=== PATIENT | female | born 1965 | race African-American/Black ===

== ENCOUNTER → 2016-10-29 | Outpatient (CLI) | payer OTHER ==
[~2016-10-29] MED LIST: LORTAB 5/500 TA1 TA1 PO
--- NOTE | ~2016-10-29 | MR84 ---
[facility]. [facility] A Service of [facility] & [facility] RADIOLOGY TEXT RESULTS PATIENT: MYRA ESQUEDA LOCATION: [facility] : 65 UNIT #: [id number] AGE: [address]: Jacquie Strong MD SEX: F ORDER DR: [id number] [place] [id number] O MR#: [id number] Acc #: [id number] NAME: MYRA ESQUEDA : 1965 SEX: F STUDY DATE/TIME: 10/29/2016 15:33 UNIT: [facility] ROOM: STUDY DESCRIPTION: MR Hip Wo Contrast Rt Attending Physician: Jacquie Strong M.D. Referring Physician: Jacquie Strong M.D. Ordering Physician: Jacquie Strong M.D. Primary Care Physician: Jacquie Strong M.D. MRI CENTER REPORT This report is preliminary unless electronic signature is present. EXAM MRI pelvis and hips without contrast, 10/29/2016. COMPARISON Right hip radiographs 09/24/2016. [facility]. Right hip radiographs 12/01/2012. HISTORY Order states acute pain of right hip. History sheet states no known injury. Increasing right hip pain since 09/21/2016. Hurts to walk, sit, stand for periods of time. Hysterectomy. Diabetic.. FINDINGS There is moderately advanced arthrosis of the right hip with prominent joint space narrowing, moderate osteophyte formation, fairly extensive high-grade chondromalacia, subarticular cystic change and marrow edema (predominating on the acetabular side), and articular irregularity. There is no effusion, avascular necrosis, fracture, or sizeable loose body. There is, however, moderate periarticular inflammation especially superolaterally with paralabral or periarticular cyst formation along the superolateral acetabular rim. This could be secondary to underlying labral pathology (likely degenerative). The left hip is unremarkable. The gluteal tendons are intact. The remainder of the bony pelvis, sacrum, and SI joints are within normal limits. There is moderate lower lumbar degenerative disc disease and facet arthrosis not optimally characterized on this exam. There is sigmoid diverticulosis. Hysterectomy is noted. No internal pelvic mass, STS. [facility] A Service of [facility] & [facility] RADIOLOGY TEXT RESULTS PATIENT: MYRA ESQUEDA LOCATION: [facility] : 65 UNIT #: [id number] AGE: [address]: Jacquie Strong MD SEX: F ORDER DR: lymphadenopathy, or hernia is noted. IMPRESSION 1. Moderately advanced right hip arthrosis with superolateral paraarticular inflammation and cystic change, likely related to degenerative labral pathology. 2. There is no evidence of avascular necrosis, fracture, or left hip arthrosis. 3. On further review, there may be two small loose bodies in the posteroinferior aspect of the right hip joint space. 4. Lower lumbar degenerative disc disease and facet arthrosis. 5. Sigmoid diverticulosis. Dictated by... Brigitte Estrada M.D. THIS IS AN ELECTRONICALLY VERIFIED REPORT Brigitte Estrada M.D. at 10/30/2016 10:52 AM JUAN/migdalia TD: 10/30/2016 09:12 JOB #: [id number] MRI CENTER REPORT Page 1 of 1
== END | disposition home or self-care (01) ==
LOC: SMRI 15:15
DX: M25.551 Pain in right hip (principal); M16.11 Unilateral primary osteoarthritis, right hip; M51.36 Other intervertebral disc degeneration, lumbar region; K57.30 Diverticulosis of large intestine without perforation or abscess without bleeding
CPT/HCPCS: 73721

== ENCOUNTER → 2017-02-25 | Outpatient (CLI) | payer OTHER ==
--- NOTE | ~2017-02-25 | US6 ---
[facility] A Service of [facility] RADIOLOGY TEXT RESULTS PATIENT: MYRA ESQUEDA LOCATION: [facility] : 65 UNIT #: [id number] AGE: [address]: Jacquie Strong MD SEX: F ORDER DR: [id number] [place] [id number] O MR#: [id number] Acc #: [id number] NAME: MYRA ESQUEDA. : 1965 SEX: F STUDY DATE/TIME: 02/25/2017 10:16 UNIT: [facility] ROOM: STUDY DESCRIPTION: US Abdominal Limited Attending Physician: Jacquie Strong M.D. Referring Physician: Jacquie Strong M.D. Ordering Physician: Jacquie Strong M.D. Primary Care Physician: Jacquie Strong M.D. MEDICAL IMAGING REPORT This report is preliminary unless electronic signature is present. EXAM Right upper quadrant abdominal ultrasound INDICATIONS Right upper quadrant abdominal pain for the past 8 days. PROCEDURE Myles-scale and Doppler imaging right upper quadrant of the abdomen. COMPARISON 01/19/2014 FINDINGS Visualized portions of pancreas unremarkable. Majority obscured by bowel gas. The liver shows diffusely increased echotexture, it measures 14.8 cm. Unremarkable gallbladder. Common duct measures 3 mm. Right kidney measures 10.3 cm and is unremarkable. IMPRESSION 1. Diffusely increased liver echotexture in keeping with steatosis. 2. Majority of the pancreas is obscured by bowel gas and not well seen. Dictated by... Lowell Lanza M.D. THIS IS AN ELECTRONICALLY VERIFIED REPORT Lowell Lanza M.D. at 02/26/2017 12:10 PM EED/to TD: 02/25/2017 18:03 JOB #: [id number] [facility] A Service of [facility] RADIOLOGY TEXT RESULTS PATIENT: MYRA ESQUEDA LOCATION: [facility] : 65 UNIT #: [id number] AGE: [address]: Jacquie Strong MD SEX: F ORDER DR: MEDICAL IMAGING REPORT Page 1 of 1
== END | disposition home or self-care (01) ==
LOC: SGUS 10:03
DX: R10.13 Epigastric pain (principal); K76.0 Fatty (change of) liver, not elsewhere classified; R93.2 Abnormal findings on diagnostic imaging of liver and biliary tract
CPT/HCPCS: 76705